=== PATIENT | male | born 1970 | race Caucasian/White ===

== ENCOUNTER → 2019-11-06 | Outpatient (CLI) | payer OTHER, SELFPAY ==
[2019-11-06 14:50] VITALS: BMI 40.2
--- NOTE | 2019-11-06 15:00 | ASPS_PTH ---
PATIENT: GRICEL OROZCO II [facility] U#:[id number] AGE/SX: 49/M ROOM: RE11/06/[address]: Dr. Leif Kathleen MD : 1970 BED: DIS: 11/06/2019 SPEC #: [id number] RECD: 11/06/19 16:32 STATUS: CARLY ANNABELLA #: [id number] NAYELI: 11/06/19 15:[address]: Leif Kathleen DEPT: CYTOLOGY RECD BY: Huang Borjas ENTERED: 11/07/19 11:52 SP TYPE: ASPIRATION OTHR DR: SLADE Bermudez Tissues: Thyroid gland, NOS Procedures: Special Stain Group II Cytology Other HEADER OPERATION: Ultrasound-guided fine needle aspiration right thyroid PRE-OP DIAGNOSIS: Uninodular goiter E04.1 TISSUE SUBMITTED: Fine needle aspiration right thyroid (12 slides) DIAGNOSIS CYTOLOGY Fine needle aspiration, right thyroid nodule (smears): Adequate for evaluation. 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 Chronic lymphocytic thyroiditis. AM:madison 11/10/19 CYTOLOGY STUDY Slides are reviewed. CYTOLOGY GROSS Received are 12 smears labeled with the patient's name and designated per the requisition as right thyroid. Submitted for staining. / madison 11/07/19 TC:? CPT: 12303
== END | disposition home or self-care (01) ==
LOC: LABSPEC 16:34
PROVIDERS: PCP Physician Assistant; Referring Provider Surgery; Visit Provider Surgery
DX: E04.1 Nontoxic single thyroid nodule (principal)
CPT/HCPCS: 88161; 88313

== ENCOUNTER 2019-11-28 07:31 | Day surgery (SDC) | payer OTHER, SELFPAY ==
--- NOTE | 2019-11-13 03:08 | HP_ITS ---
Intake Vital Signs 11/13/19 Height 6 ft 3 in 11/13/19 Weight: 314 lb 11/13/19 BMI 39.2 11/13/19 BP 135/78 H 11/13/19 Blood Pressure Location Rt brachial 11/13/19 Position Sitting 11/13/19 Respiration 20 H 11/13/19 Pulse 81 11/13/19 Pulse Oximetry (%) 96 11/13/19 BMI 40.2 Intake Visit Reasons: F/U ONE WEEK THYROID NODULE Chief Complaint: Thyroid biopsy results Dialysis Equipment Technician Required: No Is patient in pain?: No Allergies latex Allergy (Verified 11/13/19 14:34) Hives Medications Omeprazole [Prilosec] 20 mg PO DAILY 10/26/15 [History Confirmed 11/13/19] glipizide 10 mg tablet 10 mg PO BID 10/07/19 [History Confirmed 11/13/19] lisinopril 2.5 mg tablet 2.5 mg PO DAILY 10/07/19 [History Confirmed 11/13/19] pioglitazone 30 mg tablet 30 mg PO DAILY 10/07/19 [History Confirmed 11/13/19] aspirin 81 mg tablet,delayed release 81 mg PO DAILY 10/31/19 [History Confirmed 11/13/19] metformin 500 mg tablet 1,000 mg PO BID tab 10/31/19 [History Confirmed 11/13/19] [facility] Medical History Thyroid nodule (Acute) Anemia (Acute) Asthma (Acute) BLOOD TRANSFUSION (Acute) Back problem (Acute) Bone fracture (Acute) Carpal tunnel syndrome (Acute) Diabetes (Acute) GERD (gastroesophageal reflux disease) (Acute) Gastrointestinal problem (Acute) Gout (Acute) High cholesterol (Acute) Hives (Acute) IBS (irritable bowel syndrome) (Acute) Liver disease (Acute) Obesity (Acute) Seizure (Acute) ULCERS (Acute) Surgical History History of bilateral carpal tunnel release (Acute) history left bicep repair (Acute) history right elbow surgery (Acute) Family History Grandmother Asthma Father Diabetes Myocardial infarction Heart disease Hypertension High cholesterol Sister High cholesterol Arthritis Uncle Asthma Mother Arthritis Diabetes Thyroid disorder Social History (Updated 11/13/19 @ 15:[address] Leif Kathleen MD) Smoking Status: Never smoker alcohol intake: never substance use type: does not use HPI HPI HPI: GRICEL OORZCO, is a 49 M who presents to the office today for HPI HPI Surgical H&P: Yes HPI: GRICEL OROZCO, is a 49 M who presents to the office today for Follow-up from an ultrasound-guided fine-needle aspiration of a dominant right thyroid nodule which was completed on 11/06/2019. This came back as adequate for evaluation. 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 And there was chronic lymphocytic thyroiditis identified. Patient had a thyroid ultrasound in [place] in July 2019. He was found to have a 1.6 cm nodule on the right thyroid lobe. The left thyroid lobe had no masses and there was no surrounding lymphadenopathy. Patient is not complaining of any neck pain he has no history of thyroid cancer in the family. ROS General General: Yes weight change; no appetite, fatigue, colon cancer, breast cancer or weakness HEENT HEENT: Yes eye surgery and swollen glands; no difficulty swallowing, eye injury or hoarseness Endo Endocrine: Yes diabetes mellitus; no thyroid disease, thyroid cancer, Hair loss, heat intolerance or cold intolerance Skin Skin: No rash or changing moles Breast Breast: No left breast lump, right breast lump, nipple discharge, breast pain, abnormal mammogram, abnormal US or breast enlargement Musc Musculoskeletal: Yes gout; no back problems, arthritis, rheumatoid arthritis or joint pain Cardio Cardiovascular: No murmur, pacemaker, heart disease, atrial fibrillation, high blood pressure, heart attack, heart stent, palpitations, shortness of breat with exertion or chest pain Psych Psychiatric: No depression, anxiety or hearing voices Resp Respiratory: No shortness of breath, No sleep apnea, No cough, No COPD, No asthma, No emphysema, No wheezing Gastro Gastrointestinal: No abdominal pain, No nausea or vomiting, No diarrhea, No constipation, No blood in stool, Yes acid reflux, Yes hemorrhoids, No ulcers, No gallbladder problem, No black,tarry stools Melvin Hematologic: Yes blood thinners, No blood disorders, No bleeding, No anemia, No blood clots Neuro Neurologic: No weakness Exam Const General: no acute distress, well developed, well hydrated Orientation: oriented to person, oriented to place, oriented to time [facility] Head: normocephalic, atraumatic Ears: external ears normal Mouth: moist mucous membranes Eyes Sclera: sclerae normal Pupils: normal by confrontation Neck Neck: no lymphadenopathy noted Neck mass: No Thyroid: thyroid normal, symmetrical Chest Chest palpation & inspection: normal inspection of the chest Breast Palpation: No nipple discharge Resp Effort & Inspection: normal respiratory effort Auscultation: clear to auscultation bilaterally Percussion: percussion normal Cardio Rate: regular rate Rhythm: regular rhythm Heart Sounds: no murmurs GI Palpation: soft, no hepatosplenomegaly, no masses, nontender Rectal Exam: other Other: Rectal exam deferred. Extrem General: normal to inspection, no clubbing, cyanosis or edema Assessment & Plan Problems 1. Uninodular goiter E04.1 Plan My plan is to perform a right-sided thyroid lobectomy. Risk benefits to include bleeding and infection possible injury to parathyroid and recurrent laryngeal nerves have been reviewed with the patient patient also understands that there are general anesthetic risks such as blood clots heart attacks pneumonia strokes which are also a component of the risk factor profile. Coding Level of Care Code Off vis,est,level 3 Diagnoses Uninodular goiter E04.1 11/13/19 1509 <Electronically signed by Leif alexis MD> Date _ Leif Kathleen MD I have re-examined the patient. There are no clinical changes since date of exam.
[2019-11-13 15:04] VITALS: BMI 39.2
[2019-11-28] VITALS (13 sets, daily range): BP systolic 122–155; BP diastolic 75–92; PULSE 68–91; RESP 17–20; TEMP 36.4–36.9; O2SAT 92–97; BMI 39.0
--- NOTE | 2019-11-28 | IMM_PTH ---
PATIENT: GRICEL OROZCO [place] [facility][id number] AGE/SX: 49/M ROOM: RE11/28/[address]: Dr. Leif Kathleen MD : 1970 BED: DIS: 11/29/2019 SPEC #: [id number] RECD: 12/02/19 09:28 STATUS: CARLY REMurray #: [id number] NAYELI: 11/28/19 00:[address]: Leif Kathleen DEPT: IMMUNOHISTOCHEMISTRY RECD BY: Laura Vera ENTERED: 12/02/19 09:30 SP TYPE: IMMUNO OTHR DR: SLADE Bermudez Tissues: A - Thyroid gland, NOS Procedures: CK19 (add) HBME (add) CD56 (initial) PHYSICIAN & INSTITUTION [place] [id number] SPECIMEN INFORMATION: Tissue Source: A - Right thyroid lobe and isthmus Clinical Info: Uninodular goiter Specimen Number: [id number] A8 CPT code: 51719, 08668 x2 METHODOLOGY: Deparaffinized sections of prefer/formalin-fixed tissue or PAP/DQ stained slides are incubated with monoclonal/polyclonal antibodies/oligonucleotide probes. Localization is made via biotin free immunoperoxidase method. Appropriate controls are performed and reacted as expected. Results on target cell population are indicated in the following table: RESULTS: ANTIBODY / CLONE RESULT Block A8 CD56 (123C3.D5) positive CK19 (A53-B/A2.26) negative HBME1 (HBME-1) negative These tests were developed and their performance characteristics determined by [facility]. They may not have been cleared or approved by the U.S. Food and Drug Administration. The FDA has determined that such clearance or approval is not necessary. The above immunohistochemical/dualISH markers are ordered and reviewed by the Pathologist. INTERPRETATION: A. Right thyroid lobe and isthmus: Consistent with Baylee's thyroiditis. AM:madison 12/02/19
--- NOTE | 2019-11-28 | THYROID_PTH ---
PATIENT: GRICEL OROZCO [place] [facility] [place][id number] AGE/SX: 49/M ROOM: RE11/28/[address]: Dr. Leif Kathleen MD : 1970 BED: DIS: 11/29/2019 SPEC #: [id number] RECD: 11/28/19 10:35 STATUS: CARLY REMurray #: [id number] NAYELI: 11/28/19 00:[address]: Leif Kathleen DEPT: SURGICAL PATHOLOGY RECD BY: Laura Vera ENTERED: 11/28/19 11:00 SP TYPE: THYROID OTHR DR: SLADE Bermudez Tissues: A - Thyroid gland, NOS B - Lymph node of neck, NOS Procedures: Frozen Section (charge) Frozen Section Add'kelvin ([facility]) Surgery Specimen Level IV Surgery Specimen Level V HEADER OPERATION: Thyroid lobectomy PRE-OP DIAGNOSIS: Uninodular goiter E04.1 TISSUE SUBMITTED: A - Right thyroid lobe and isthmus sent for frozen at 1027, B - Lymph node FROZEN SECTION DIAGNOSIS A. Right thyroid lobe and isthmus: Chronic lymphocytic thyroiditis (Baylee's thyroiditis), multinodular goiter. SJ:madison 11/28/19 MICROSCOPIC DIAGNOSIS A. 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 One out of one lymph node with no pathologic change. See comment. B. Lymph node, biopsy: Two out of two lymph nodes with no pathologic change. AM:madison 12/02/19 COMMENT A. Immunohistochemistry ([id number]) supports the above diagnosis. MICROSCOPIC DESCRIPTION Slides are reviewed. GROSS DESCRIPTION A - Received fresh for frozen section diagnosis labeled with the patient's name is a specimen designated right thyroid lobe and isthmus. The specimen consists of a thyroid lobectomy and isthmectomy specimen weighing 25.9 gm. The right thyroid lobe measures 7 x 4 x 2.5 cm and isthmus measures 2.5 x 2 x 0.9 cm. No external parathyroid tissue is identified. The specimen is inked as follows: anterior - blue, posterior - black and isthmic margin -yellow. Serial sections reveal multiple multinodular cut surfaces with the largest nodule measuring 2 cm in greatest dimension. Three frozen section are done, one from isthmus and two from right thyroid lobe. Dehydrating Press Operator sections are submitted in 12 cassettes as follows: 1 - frozen section, isthmus, 2 & 3 - frozen section, right thyroid lobe, 4 & 5 - rest of the isthmus, 6-12 - right lobe (6 containing most superior portion and 12 containing most inferior portion of the thyroid lobe). / SJ:madison 11/28/19 B - Received in fixative is one container labeled with the patient's name and designated lymph node. The specimen consists of a shah-pink nodule, a possible lymph node, measuring 0.5 x 0.5 x 0.3 cm. Also present in the container is a piece of adipose tissue measuring 0.5 x 0.3 x 0.1 cm. The entire specimen is submitted in one cassette. / SJ:madison 11/28/19 TC:3 CPT: 43366, 46997 x2, 20838, 76881
--- NOTE | 2019-11-28 08:11 | EKG12_ITS ---
Test Reason : PRE-OP Blood Pressure : / mmHG Vent. Rate : 070 BPM Atrial Rate : 070 BPM P-R Int : 118 ms QRS Dur : 098 ms QT Int : 392 ms P-R-T Axes : 037 026 029 degrees QTc Int : 423 ms Normal sinus rhythm Normal ECG Confirmed by ALICIA FLOREZ, JUSTEN ([id number]), story editor CAL VELAZQUEZ ([id number]) on 12/03/2019 10:09:18 AM Referred By: Leif Kathleen Confirmed By:JUSTEN VARGAS MD
[2019-11-28 08:22] LABS: Anion Gap 5 (5-15); BUN 21 mg/dL (7-18); Calcium,Total 8.7 mg/dL (8.5-10.1); Chloride 105 mmol/L (98-107); Creatinine, Serum 0.81 mg/dL (0.70-1.30); EST Glomerular Filtration Rate 107 mL/min (>60); Est Glom Filt Rate - Afr Amer 130 mL/min (>60); Glucose 171 mg/dL (74-106); Sodium Level 139 mmol/L (136-145)
[2019-11-28] MEDS: Lactated Ringers 1,000 ML 100 ML IV ×2 (08:22→13:14)
[2019-11-28 08:31] LABS: Hemoglobin A1c 8.7 % (4.2-6.3)
[2019-11-28 08:35] LABS: Bedside Glucose 170 mg/dL (70-110)
[2019-11-28] MEDS: BUPIVACAINE LIPOSOME/PF 20 ML VIAL OPERA.SITE (10:30)
--- NOTE | 2019-11-28 10:32 | PCM.OPRPT ---
Problem List (1) Uninodular goiter Status: Acute Report of Operation Date of Procedure: 11/28/19 Pre-Operative Diagnosis: Uninodular goiter Post-Operative Diagnosis: Same Surgery/Procedure Performed:: Right-sided thyroid lobectomy and isthmusectomy Type of Anesthesia:: General Anesthesiologist: Surinder Rich Specimen's removed: Right thyroid and isthmus Drains: None Estimated Blood Loss (mL): < 25 cc Description of Procedure: Patient was brought into the operating room. Placed in the supine position. Under excellent general trach in towel was placed underneath the shoulder blades and neck was extended and sterilely prepped and draped in usual fashion. Local was injected. Cervical incision was made. Subplatysmal flaps were created with use of electrocautery. Gelpi retractor was placed inside the wound. Midline strap muscles were opened. I started on the right side. I took the superior pole vessels down with harmonic dissector the middle thyroidal vein down with harmonic dissector and then the inferior pole vessels down with harmonic dissector. Rotated the gland from a lateral to medial standpoint taking David's ligaments off with harmonic dissector and then took the gland off of the trachea and transected it to the left side of the thyroid gland using the harmonic dissector. Frozen section came back benign. Midline strap muscles were brought together. This was done with a 2-0 Vicryl. Subplatysmal flaps were brought together with a 3-0 Vicryl. And then a running 4-0 Monocryl on the skin. Dermabond was applied sterile dressings were applied and the patient tolerated the procedure well. - Admit VTE Documentation VTE Present on Admission: No VTE Mechan Device Prophylaxis: SCD's VTE Pharm Prophylaxis ordered?: No Reason prophylaxis not ordered:: Treatment Not Indicated
--- NOTE | 2019-11-28 10:44 | DCINST_ITS ---
Discharge Diet: Light diet - advance as tolerated - If you have questions about your diet instructions, please talk to your doctor. Discharge Activity: May Not Drive - for 1 week or while taking narcotic pain medicine. May shower in (days): 1 Lifting Restrictions: 10 pounds Call your doctor if your incision/area has: Continuous Slow Oozing, Sudden Increased Bleeding, Increased Pain/ Swelling, Increased Redness, Foul Smelling Discharge Call your doctor if you observe: Fever of 101 or Higher Suture Line Care: Avoid Pulling/Pushing, Avoid Pinching/Bending Additional Dressing/Incision Instructions:: Change or remove dressing in 4 days. Leave steri-strips in place for 1 week. Allergies/Adverse Reactions: Allergies latex Allergy (Verified 11/28/19 07:51) Hives Medications to take at Discharge Omeprazole [Prilosec] 20 mg PO DAILY 10/26/15 glipizide 10 mg tablet 10 mg PO BID 10/07/19 lisinopril 2.5 mg tablet 2.5 mg PO DAILY 10/07/19 pioglitazone 30 mg tablet 30 mg PO DAILY 10/07/19 aspirin 81 mg tablet,delayed release 81 mg PO DAILY 10/31/19 metformin 500 mg tablet 1,000 mg PO BID tab 10/31/19 Oxycodone HCl/Acetaminophen [Percocet 5/325] 1 - 2 tablet PO Q4H PRN PRN 6 Days #30 tablet 11/28/19 The following prescriptions were given: Oxycodone HCl/Acetaminophen [Percocet 5/325] 1 - 2 tablet PO Q4H PRN PRN 6 Days #30 tablet PRN Reason: Pain Transmission Status: Sent to [id number] Primary Care Physician: Nicky Long PA [Primary Care Provider] - Test Results: Test results from this visit will be discussed in further detail at your follow- up appointment, if applicable. Please Follow Up With: Leif Kathleen MD - [phone] When: Call to make an appointment to be seen in about 10 days.
[2019-11-28 12:01] LABS: Bedside Glucose 153 mg/dL (70-110)
[2019-11-28] MEDS: Cefazolin 1 GM/50 ML BAG IV ×2 (14:53→21:11)
[2019-11-28] MEDS: oxyCODONE 5 MG Tablet PO ×2 (15:48→16:32)
[2019-11-28] MEDS: glipiZIDE 10 MG Tablet PO (16:34)
[2019-11-28] MEDS: metFORMIN HCl 1,000 MG Tablet 1000 MG PO (16:38)
[2019-11-28] MEDS: HYDROmorphone 0.5 MG/0.5 ML SYRINGE IV ×2 (17:36→20:44)
[2019-11-29] MEDS: Lactated Ringers 1,000 ML 100 ML IV (00:50)
[2019-11-29] MEDS: HYDROmorphone 1 MG/ML Syringe IV (00:54)
[2019-11-29 02:40] VITALS: BP 115/65; PULSE 91; RESP 18; TEMP 37.2; O2SAT 93
[2019-11-29] MEDS: Cefazolin 1 GM/50 ML BAG IV (05:26)
[2019-11-29] MEDS: oxyCODONE 5 MG Tablet PO (05:26)
--- NOTE | 2019-11-29 07:48 | PN.SURG_ITS ---
Patient Problems: Active and Suspected Problems (Last Reviewed 11/13/19 @ 15:[address] Leif Kathleen MD) Uninodular goiter (Acute) Subjective: Patient doing well with no issues - Physical Exam Vitals/I&O's: Vital Signs Temp Pulse Resp BP Pulse Ox 99 F 91 18 115/65 93 11/29/19 02:40 11/29/19 02:40 11/29/19 02:40 11/29/19 02:40 11/29/19 02:40 Oxygen Flow Rate (L/min) 2 Oxygen Delivery Method Room Air Weight: 312 lb 9.848 oz Body Mass Index (BMI) 39.0 Intake and Output for Last 24 Hours 11/27/19 11/28/19 11/29/19 23:59 23:59 23:59 Intake Total 1688.33 / 1688.33 761.67 / 761.67 Balance 1688.33 / 1688.33 761.67 / 761.67 General: Alert, Oriented x3 Lungs: Normal air movement Cardiovascular: Regular rate, Regular Rhythm Laboratory Results 11/28/19 08:00: Sodium 139, Potassium 4.0, Chloride 105, Carbon Dioxide 29.0, Anion Gap 5, BUN 21 H, Creatinine 0.81, Estim Creat Clear Calc 130.40, Est GFR (MDRD) Af Amer 130, Est GFR (MDRD) Non-Af 107, BUN/Creatinine Ratio 26.0 H, Glucose 171 H, Calcium 8.7 11/28/19 08:00: Hemoglobin A1c 8.7 H 11/28/19 08:07: POC Glucose 170 H 11/28/19 11:54: POC Glucose 153 H Current Medications Glipizide (Glucotrol) 10 mg PO BIDAC [facility] Last Admin: 11/28/19 16:34 Dose: 10 mg Documented by: Hydromorphone HCl (Dilaudid Inj) 0.5 - 1 mg IV Q2H PRN PRN PRN Reason: Pain Score 1-1010 Last Admin: 11/28/19 20:44 Dose: 0.5 mg Documented by: Hydromorphone HCl (Dilaudid Inj) 0.5 - 1 mg IV Q2H PRN PRN PRN Reason: Pain Score 1-1010 Last Admin: 11/29/19 00:54 Dose: 1 mg Documented by: Lactated Ringer's () 1,000 mls @ 100 mls/hr IV .Q10H ADELA Last Infusion: 11/29/19 05:56 Dose: 100 mls/hr Documented by: Cefazolin Sodium () 1 gm in 50 mls @ 100 mls/hr IV Q8 ADELA Last Infusion: 11/29/19 05:56 Dose: Infused Documented by: Sodium Chloride () 250 mls @ 15 mls/hr IV .[id number] PRN PRN Reason: Saline Flush Lisinopril (Zestril) 2.5 mg PO DAILY ADELA Metformin HCl (Glucophage) 1,000 mg PO BIDCM [facility] Last Admin: 11/28/19 16:38 Dose: 1,000 mg Documented by: Ondansetron HCl (Zofran) 4 mg IV Q8H PRN PRN PRN Reason: NAUSEA Oxycodone HCl (Oxyir) 5 - 10 mg PO Q4H PRN PRN PRN Reason: Pain Score 1-10/10 Last Admin: 11/29/19 05:26 Dose: 10 mg Documented by: Pantoprazole Sodium (Protonix) 20 mg PO DAILY ADELA Pioglitazone HCl (Actos) 30 mg PO DAILY ADELA Sodium Chloride () 10 - 40 ml IV UD PRN PRN Reason: SALINE FLUSH Medical Necessity - Tobacco Use Smoking Status: Never smoker Tobacco Use: Non-smoker Assessment/Plan All Active Problems (Last Reviewed 11/13/19 @ 15:[address] Leif Kathleen MD) Uninodular goiter (Acute) Thyroid nodule (Acute) 49-year-old male status post right thyroidectomy 1. Patient is doing well besides a sore throat. His neck is soft and no signs of hematoma. Will DC patient home. Dipak Vargas MD Pager: [facility] [address] [place] [address], [address] [place] [address] Office:
[2019-11-29 08:40] VITALS: BP 128/84; PULSE 95; RESP 18; TEMP 36.4; O2SAT 92
[2019-11-29] MEDS: Pantoprazole Sodium 20 MG Tablet PO (09:04)
[2019-11-29] MEDS: Lisinopril 2.5 MG Tablet PO (09:04)
[2019-11-29 09:10] LABS: Bedside Glucose 172 mg/dL (70-110)
== END 2019-11-29 11:16 | disposition home or self-care (01) ==
LOC: SDC 07:31 → AC 07:33 → MS3 10:47
PROVIDERS: Anesthesiology; PCP Physician Assistant; Referring Provider Surgery; Visit Provider Surgery
PROC: (CPT 60220; principal; 2019-11-28 09:15)
DX: E06.3 Autoimmune thyroiditis (principal); E04.2 Nontoxic multinodular goiter; J45.909 Unspecified asthma, uncomplicated; E11.9 Type 2 diabetes mellitus without complications; K21.9 Gastro-esophageal reflux disease without esophagitis; E78.00 Pure hypercholesterolemia, unspecified; E66.9 Obesity, unspecified; Z68.39 Body mass index [BMI] 39.0-39.9, adult; Z79.82 Long term (current) use of aspirin; Z79.84 Long term (current) use of oral hypoglycemic drugs; Z79.899 Other long term (current) drug therapy
CPT/HCPCS: 60220; 80048; 82962; 83036; 88305; 88307; 88331; 88332; 88341; 88342; 93005; 99251; J7120; G0463; J2405

== ENCOUNTER → 2020-01-23 | Outpatient (CLI) | payer OTHER, SELFPAY ==
[2019-11-28 12:53] VITALS: BMI 39.0
[2020-01-23 18:08] LABS: T4 Free Direct 0.85 ng/dL (0.76-1.46)
[2020-01-25 13:56] LABS: Thyroid Peroxidase AB 120 IU/mL (0-34)
== END | disposition home or self-care (01) ==
LOC: MTLAB 14:56
PROVIDERS: PCP Physician Assistant; Referring Provider Internal Medicine Endocrinology, Diabetes & Metabolism; Visit Provider Internal Medicine Endocrinology, Diabetes & Metabolism
DX: E06.3 Autoimmune thyroiditis (principal); E04.1 Nontoxic single thyroid nodule; R94.6 Abnormal results of thyroid function studies
CPT/HCPCS: 84439; 84443; 86376

== ENCOUNTER → 2020-11-24 16:28 | Outpatient (CLI) | payer OTHER, SELFPAY ==
[2020-08-16 10:31] VITALS: BMI 39.0
[2020-11-24 18:26] LABS: AST(SGOT) 68 U/L (15-37); Alanine Aminotransfer ALT/SGPT 98 U/L (16-61); Albumin, Serum 3.9 g/dL (3.2-5.0); Alkaline Phosphatase 92 U/L (45-117); Bilirubin, Direct 0.16 mg/dL (0.00-0.30); GGTP 153 U/L (15-85); Globulin 3.7 g/dL (2.2-4.2); Protein, Total 7.6 g/dL (6.4-8.2)
[2020-11-26 16:36] LABS: AFP, Tumor Marker 1.6 ng/mL (0.0-8.3)
== END ==
PROVIDERS: PCP Physician Assistant; Referring Provider Internal Medicine Gastroenterology; Visit Provider Internal Medicine Gastroenterology
DX: K76.0 Fatty (change of) liver, not elsewhere classified (principal); K74.60 Unspecified cirrhosis of liver
CPT/HCPCS: 36415; 80076; 82105; 82977

== ENCOUNTER → 2021-07-19 12:18 | Outpatient (CLI) | payer OTHER, SELFPAY ==
[2021-07-19 15:47] LABS: T4 Free Direct 1.19 ng/dL (0.76-1.46); Thyroid Stim Hormone (TSH) 3.22 uIU/mL (0.358-3.74)
== END ==
PROVIDERS: PCP Physician Assistant; Referring Provider Internal Medicine Endocrinology, Diabetes & Metabolism; Visit Provider Internal Medicine Endocrinology, Diabetes & Metabolism
DX: E89.0 Postprocedural hypothyroidism (principal); E06.3 Autoimmune thyroiditis
CPT/HCPCS: 36415; 84439; 84443

== ENCOUNTER 2022-07-21 11:25 | Inpatient (IN) | payer OTHER, SELFPAY ==
--- NOTE | 2022-07-11 15:59 | EKG12_ITS ---
Test Reason : PRE-OP Blood Pressure : / mmHG Vent. Rate : 076 BPM Atrial Rate : 076 BPM P-R Int : 104 ms QRS Dur : 098 ms QT Int : 384 ms P-R-T Axes : 030 028 022 degrees QTc Int : 432 ms Sinus rhythm with short OH Otherwise normal ECG Confirmed by ALICIA FLOREZ, JUSTEN ([id number]), supervising editor trailer CAL VELAZQUEZ ([id number]) on 07/12/2022 6:47:44 AM Referred By: Khoa Parmar Confirmed By:JUSTEN VARGAS MD
[2022-07-11 16:46] LABS: Hematocrit 38.9 % (40-54); Hemoglobin 12.8 g/dL (13.0-16.5); Mean Corp Hgb Conc 32.9 g/dL (32-36); Mean Corpuscular Hgb 27.8 pg (27.0-32.0); Mean Corpuscular Volume 84.4 fL (80-94); Mean Platelet Vol. 10.3 fl (6.2-12.0); Platelet Count 221 K/mm3 (150-450); RBC Distribution Width CV 13.4 % (11.6-14.6); RBC Distribution Width SD 40.7 fl (35.1-43.9); Red Blood Count 4.61 M/mm3 (4.6-6.2); White Blood Count 6.6 K/mm3 (4.4-11.0)
[2022-07-11 17:10] LABS: Anion Gap 5 (5-15); BUN 18 mg/dL (7-18); Calcium,Total 9.2 mg/dL (8.5-10.1); Chloride 103 mmol/L (98-107); EST Glomerular Filtration Rate 94 mL/min (>60); Est Glom Filt Rate - Afr Amer 114 mL/min (>60); Glucose 118 mg/dL (74-106); Potassium 3.8 mmol/L (3.5-5.1); Sodium Level 138 mmol/L (136-145); Thyroid Stim Hormone (TSH) 6.09 uIU/mL (0.358-3.74)
[2022-07-11 17:53] LABS: Hemoglobin A1c 6.5 % (3.8-5.6)
[2022-07-21] VITALS (21 sets, daily range): BP systolic 135–161; BP diastolic 71–90; PULSE 78–98; RESP 15–24; TEMP 36.2–36.8; O2SAT 89–97; BMI 38.4
--- NOTE | 2022-07-21 | KID_PTH ---
PATIENT: GRICEL OROZCO II LOC: [facility] U#:[id number] AGE/SX: 51/M ROOM: CT314 RE07/21/[address]: Dr. Khoa Parmar MD : 1970 BED: 1 DIS: 07/23/2022 SPEC #: [id number] RECD: 07/21/22 14:39 STATUS: CARLY [place] #: [id number] NAYELI: 07/21/22 00:[address]: Khoa Parmar DEPT: SURGICAL PATHOLOGY RECD BY: Tu Moctezuma ENTERED: 07/21/22 14:39 SP TYPE: KIDNEY OTHR DR: SLADE Bermudez Tissues: Kidney, NOS Procedures: Surgery Specimen Level V HEADER OPERATION: Laparoscopic robotic left partial nephrectomy PRE-OP DIAGNOSIS: Neoplasm of left kidney TISSUE SUBMITTED: Left renal mass MICROSCOPIC DIAGNOSIS Left kidney mass, partial nephrectomy: Clear cell renal cell carcinoma. See cancer synoptic report below. AM:madison 07/25/2022 COMMENT KIDNEY CANCER SUMMARY Procedure ? partial nephrectomy Specimen laterality ? left kidney Tumor size ? 3 x 2.5 x 2 cm Tumor focality ? single focus of carcinoma Histologic type ? clear cell renal cell carcinoma Sarcomatoid features ? not identified Rhabadoid features - not identified Histologic grade ? Christiano grade 2/4 Tumor necrosis ? not present Tumor extension ? tumor confined to kidney. Margins ? uninvolved by invasive carcinoma Lymphvascular invasion - not identified Regional lymph nodes ? no lymph nodes found Non-neoplastic kidney ? mild arterionephrosclerosis and focal chronic inflammation. PATHOLOGIC STAGE: T1a Nx Mx The above summary is in compliance with [employer] (CAP) Cancer Protocols Checklist and [place] [employer] Committee on Cancer (AJCC), Staging Manual, 8th Ed. MICROSCOPIC DESCRIPTION Slides are reviewed. GROSS DESCRIPTION Received in fixative is one container labeled with the patient's name and designated left renal mass. The specimen consists of an irregular fragment of shah tissue surrounded by yellow fatty tissue. The specimen measures 4.2 x 3.8 x 3 cm. The presumed parenchymal margin is inked in black ink. The opposite surface is inked in blue ink. Serial sections reveal a yellow-pink hemorrhagic mass measuring 3 x 2.5 x 2 cm. Community Development Director sections are submitted in ten cassettes. / AM:madison 07/24/2022 TC:0 CPT: 40916
[2022-07-21] MEDS: Lactated Ringers 1,000 ML 15 ML IV (06:55)
[2022-07-21 07:01] LABS: Bedside Glucose 135 mg/dL (74-106)
--- NOTE | 2022-07-21 11:29 | PCM.HP.STD ---
HPI - General General Date of Service: 07/21/22 Chief Complaint: Left renal mass HPI Narrative GRICEL OROZCO, is a 51 M who presents for a left laparoscopic robotic assisted partial nephrectomy. [facility] Medical History (Updated 07/21/22 @ 11:[address] Khoa Parmar MD) Anemia Asthma Back problem BLOOD TRANSFUSION Bone fracture Cancer Cirrhosis Cirrhosis of liver Diabetes Diabetes Dietary restriction Gastric reflux GERD (gastroesophageal reflux disease) Gout Gout Baylee's thyroiditis High cholesterol History of echocardiogram History of IBS History of renal disease History of stress test IBS (irritable bowel syndrome) Leg cramps Liver disease Non-smoker Obesity Postoperative hypothyroidism Seizure Thyroid disease Thyroid nodule ULCERS Wears glasses Home Medications omeprazole 20 mg capsule,delayed release 40 mg PO DAILY 10/26/15 [History Last Taken 07/21/22] glipizide 10 mg tablet (Glucotrol) 10 mg PO DAILY 10/07/19 [History Last Taken 07/20/22] lisinopril 2.5 mg tablet 2.5 mg PO DAILY 10/07/19 [History Last Taken 07/20/22] pioglitazone 30 mg tablet 30 mg PO DAILY #30 tabs 01/03/22 [Rx Last Taken 07/20/22] milk thistle 150 mg capsule 150 mg PO DAILY 03/10/22 [History Last Taken 07/20/22] multivitamin (Daily Multi-Vitamin tablet) 1 tab PO DAILY 03/10/22 [History Last Taken 07/20/22] turmeric 500 mg PO DAILY 03/10/22 [History Last Taken Unknown] metformin 500 mg tablet 1,000 mg PO BID #180 tabs 06/30/22 [Rx Last Taken 07/20/22] dulaglutide 3 mg/0.5 mL subcutaneous pen injector (Trulicity) 3 mg subcut MO 07/07/22 [History Last Taken 07/17/22] levothyroxine 200 mcg tablet 200 mcg PO QHS 07/07/22 [History Last Taken 07/20/22] docusate sodium 100 mg capsule (Colace) 100 mg PO BID #20 caps 07/21/22 [Rx Last Taken Unknown] oxycodone-acetaminophen 5 mg-325 mg tablet 1 tab PO Q6H PRN pain 7 days #14 tabs 07/21/22 [Rx Last Taken Unknown] Allergy/AdvReac Type Severity Reaction Status Date / Time latex Allergy Hives Verified 07/21/22 06:32 Family History Grandmother Asthma Father Diabetes Myocardial infarction Heart disease Hypertension High cholesterol Sister High cholesterol Arthritis Uncle Asthma Mother Arthritis Diabetes Thyroid disorder Surgical History (Updated 07/07/22 @ 10:23 by Margarette Lopez) history left bicep repair History of bilateral carpal tunnel release History of incision and drainage History of partial thyroidectomy (~11/2019) history right elbow surgery Hx laparoscopic cholecystectomy Social History Smoking Status: Never smoker alcohol intake: never substance use type: does not use Vital Signs Vital Signs Vital Signs: 07/21/22 06:35 07/21/22 06:35 Temperature 97.8 F Temperature Source Temporal Pulse Rate 78 Respiratory Rate 20 H Respiratory Pattern Normal Blood Pressure 136/81 H Blood Pressure Mean 99 Blood Pressure Source Monitor Blood Pressure Position Semi-Fowlers Blood Pressure Location Left Arm Pulse Ox 94 Oxygen Delivery Method Room Air Weight Weight: 139.5 kg Body Mass Index (BMI) 38.4 Results Lab / Micro Data Result Diagrams: 07/11/22 16:14 07/11/22 16:14 Labs: Laboratory Results - last 24 hr 07/21/22 06:26: POC Glucose 135 H
--- NOTE | 2022-07-21 11:29 | PCM.DC ---
Discharge Instructions Diet Discharge Diet: No restrictions, Light diet - advance as tolerated and Soft diet Activity Discharge Activity: May Not Drive and May Shower Return to work on:: 09/01/22 May shower in (days): 1 Lifting Restrictions: No lifting over 10 pounds for 6 weeks Dressing / Incision Call your doctor if your incision/area has: Continuous Slow Oozing and Sudden Increased Bleeding Cleanse incision/area with: Soap & Water Follow Up Care Please Follow Up With: Khoa Parmar MD When: Follow-up in 2 weeks Test Results: Test results from this visit will be discussed in further detail at your follow-up appointment, if applicable. Discharge Plan Admission Primary Reason for Your Visit: left partial nephrectomy Attending Provider: Khoa Parmar Primary Care Provider: Nicky Long Instructions Patient Instructions: Nephrectomy Dc Discharge Orders/Prescriptions Prescriptions: New oxycodone-acetaminophen 5-325 mg tablet 1 tab PO Q6H PRN (Reason: pain) 7 Days Qty: 14 0RF docusate sodium [Colace] 100 mg capsule 100 mg PO BID Qty: 20 0RF Continued lisinopril 2.5 mg tablet 2.5 mg PO DAILY glipizide [Glucotrol] 10 mg tablet 10 mg PO DAILY pioglitazone 30 mg tablet 30 mg PO DAILY Qty: 30 6RF multivitamin [Daily Multi-Vitamin] Tablet 1 tab PO DAILY milk thistle 150 mg capsule 150 mg PO DAILY Rx Instructions: give with meal/snack turmeric 500 mg PO DAILY omeprazole 20 MG capsule 40 mg PO DAILY levothyroxine 200 mcg tablet 200 mcg PO QHS Trulicity 3 mg/0.5 mL pen injector 3 mg subcut MO metformin 500 mg tablet 1,000 mg PO BID Qty: 180 1RF Referrals / Follow Up: Khoa Parmar MD [Med Staff - Active Staff] - Nicky Long PA [Primary Care Provider] - Disposition Disposition (needs filled in before D/C Order can be placed): Home, Self Care
[2022-07-21] MEDS: Bupivacaine 0.25% 30 ML Vial (11:30)
[2022-07-21] MEDS: Lactated Ringers 1,000 ML 125 ML IV ×2 (11:30→17:17)
--- NOTE | 2022-07-21 11:30 | OP.PCM_ITS ---
Report of Operation Date of Procedure: 07/21/22 Pre-Operative Diagnosis: Left renal mass Post-Operative Diagnosis: The same Surgery/Procedure Performed:: Laparoscopic robotic assisted partial nephrectomy left side Description of Surgical Findings:: 51-year-old male was found to have a mass in his left kidney about 3 cm in size recommended that we proceed with a laparoscopic robotic assisted partial nephrectomy we talked about the risk of surgery risk of bleeding infection injury to critical structures such as bowel and colon, risk of a transfusion. And also the goal is to remove the entire tumor but hopefully save his left kidney and perform a partial nephrectomy. Patient was taken back to the operating room at his induction of anesthesia he was placed supine first and then we placed in full flank position with an axillary roll in place we secured them to the table with tape's and padding to make sure that all the pressure points were padded the legs and ankles and joints were padded and the table was flexed. Fairly large obese gentleman his BMI was 38 he was 6 foot 139 kg which made the surgery fairly challenging. The abdomen was shaved prepped and draped in usual sterile fashion then I made a small incision in the mid abdomen introduced a Veress needle into the peritoneal cavity insufflated the peritoneal cavity with CO2 gas I then placed the camera trocar left arm trocar into right arm trochars for the robot and an air seal port for the agency sales management assistant. We then docked the robot and the first part we did is we incised and reflected the colon off the kidney very difficult the dissection again given the patient's size. But we able to reflect the colon off the kidney and then using the fourth arm elevated the kidney up and then dissecting underneath the kidney I first identified the gonadal vein and traced the gonadal vein underneath the kidney all the way to the renal vein. I dissected superior to the renal vein but did not find the artery I then came back inferior to renal vein and was able to clip the gonadal vein I then clipped clipped the lumbar vein coming off the gonadal vein and off the renal vein after clipping these veins and I had better visualization behind the renal vein and then deep behind the renal vein was a renal artery coming off the aorta this was identified and and cleared took a long time to dissect the renal artery and finally get it cleared up to place a bulldog on it. I then flipped the kidney down we opened up the kidney Gerota's fascia defatted the kidney identify the tumor it was in the mid upper pole circumferentially dissected all the way around the tumor used the ultrasound to delineate the edges of the tumor so that the approach was then marked on the renal parenchyma to identify the safe areas that approach the tumor. Once the tumor was identified then a bulldog was placed on the artery initially was planning for 2 to bulldogs but there was only room for one of the 1 bulldog provided enough compression and there was good control of the vascular supply to the kidney once we started dissecting on the tumor there was really no heavy bleeding I then dissected circumferentially around the tumor then got underneath the tumor elevated the tumor off the hilum and then we dissected deep underneath the tumor until we were able to elevate this tumor off the renal renal parenchyma there was no violations of the capsule of the tumor he saw the tumor was visible on resection but it was a clean resection and entirely resected. Once the tumor was resected off the kidney this was put in Endo Catch bag I then ran a stitch along the base of the resection site with a 3 oh V-Loc stitch I then reapproximated the edge of the kidney using interrupted technique using large clips clips to perform reknot free to reapproximate the edges of the kidney edges with the resection was done after this was completed then we then clamped the artery clamp time was less than 30 minutes there was good blood flow to the kidney there was some minor oozing from the resection site and the suture line Floseal was placed on this and the Surgicel was placed on this and we continue with observation and there was no more bleeding. The robot was then undocked we extracted the tumor through the air seal port and then we at the closed the aerocele port is quite difficult but is able to put 2 Almira's on the fascia but nice interrupted stitches and brought the fascia together I probed the wound with my finger then the fascia was closed. We then looked back and there was no signs of bleeding from the kidney kidney was tacked up against the sidewall again and then all the ports were removed under visualization there was minimal blood loss in the case tumor was resected completely negative margins were obtained grossly and all the instruments were removed and everything was accounted for needles and sponges were accounted for patient's anesthetic was reversed and is being taken to the PACU in good condition. Surgeon: Khoa Parmar Type of Anesthesia: General Drains: rodríguez Admit VTE Documentation VTE Present on Admission: No VTE Mechan Device Prophylaxis: SCD's VTE Pharm Prophylaxis ordered?: No
--- NOTE | 2022-07-21 12:10 | SUR.PHASEI ---
NASAL TRUMPET INSERTED VIA [employer]JELIO IT SECURITY ENGINEER FOR [employer]. HE ALSO GOT AN ORDER FOR A DUONEB FROM DR. MCDANIEL. RESPIRATORY CALLED TO HAVE THEM COME FOR THE TREATMENT.
[2022-07-21] MEDS: Ipratropium/Albuterol Sulfate 3 ML AMPUL.NEB INHALATION (12:16)
[2022-07-21 12:45] LABS: Bedside Glucose 191 mg/dL (74-106)
[2022-07-21 14:40] LABS: Bedside Glucose 191 mg/dL (74-106)
[2022-07-21] MEDS: Ketorolac 15 MG/ML Vial IV (17:15)
[2022-07-21] MEDS: metFORMIN HCl 500 MG Tablet 1000 MG PO (17:16)
[2022-07-21] MEDS: Acetaminophen 325 MG Tablet PO (18:26)
[2022-07-21] MEDS: Levothyroxine 100 MCG Tablet 200 MCG PO (20:39)
[2022-07-21] MEDS: Docusate Sodium 100 MG Capsule 200 MG PO (20:41)
[2022-07-22] MEDS: Lactated Ringers 1,000 ML 125 ML IV (01:29)
[2022-07-22 03:57] VITALS: BP 148/82; PULSE 98; RESP 16; TEMP 36.7; O2SAT 98
[2022-07-22 03:59] VITALS: BP 148/82; PULSE 98; RESP 16; TEMP 36.7; O2SAT 98
[2022-07-22 06:08] LABS: Hematocrit 37.3 % (40-54); Hemoglobin 12.5 g/dL (13.0-16.5); Mean Corp Hgb Conc 33.5 g/dL (32-36); Mean Corpuscular Hgb 28.6 pg (27.0-32.0); Mean Corpuscular Volume 85.4 fL (80-94); Platelet Count 185 K/mm3 (150-450); RBC Distribution Width CV 13.5 % (11.6-14.6); RBC Distribution Width SD 42.4 fl (35.1-43.9); Red Blood Count 4.37 M/mm3 (4.6-6.2); White Blood Count 7.6 K/mm3 (4.4-11.0)
[2022-07-22 06:43] LABS: Anion Gap 6 (5-15); BUN 18 mg/dL (7-18); BUN/Creat Ratio 14.9 RATIO (10-20); Calcium,Total 8.6 mg/dL (8.5-10.1); Chloride 104 mmol/L (98-107); Creatinine, Serum 1.21 mg/dL (0.70-1.30); EST Glomerular Filtration Rate 67 mL/min (>60); Est Glom Filt Rate - Afr Amer 81 mL/min (>60); Estimated Creatinine Clearance 85.35 ml/min; Glucose 171 mg/dL (74-106); Sodium Level 137 mmol/L (136-145)
[2022-07-22 08:11] VITALS: BP 133/84; PULSE 91; RESP 18; TEMP 36.7; O2SAT 95
[2022-07-22] MEDS: Pantoprazole Sodium 40 MG Tablet PO (08:31)
[2022-07-22] MEDS: Pioglitazone Hydrochloride 30 MG Tablet PO (08:32)
[2022-07-22] MEDS: Docusate Sodium 100 MG Capsule 200 MG PO ×2 (08:32→21:00)
[2022-07-22] MEDS: glipiZIDE 10 MG Tablet PO (08:32)
--- NOTE | 2022-07-22 08:32 | PCM.PN.GU ---
Subjective Subjective Postoperative day #2 status post a left partial nephrectomy, doing fairly well still requiring a little bit of oxygen but pain is under control had some liquid bowel movement last night, plan today would be to Hep-Lock his IV fluids remove the Putnam catheter encourage ambulation advance to regular diet as tolerated. Objective Data Objective Data Vital Signs: Vital Signs Temp Pulse Resp BP Pulse Ox O2 Del Method O2 Flow Rate 98.1 F 91 18 133/84 H 95 Nasal Cannula 2 07/22/22 08:11 07/22/22 08:11 07/22/22 08:11 07/22/22 08:11 07/22/22 08:11 07/22/22 08:17 07/22/22 08:17 Oxygen Flow Rate (L/min) 2 Oxygen Delivery Method Nasal Cannula Weight: 139.5 kg Body Mass Index (BMI) 38.4 Intake & Output: Intake and Output for Last 24 Hours 07/20/22 07/21/22 07/22/22 23:59 23:59 23:59 Intake Total 4537.92 / 4537.92 1000 / 1000 Output Total 1475 / 1475 1300 / 1300 Balance 3062.92 / 3062.92 -300 / -300 Lab / Micro Data Result Diagrams: 07/22/22 05:24 07/22/22 05:24 Labs: Laboratory Results - last 24 hr 07/21/22 12:25: POC Glucose 191 H 07/21/22 14:21: POC Glucose 191 H 07/22/22 05:24: WBC 7.6, RBC 4.37 L, Hgb 12.5 L, Hct 37.3 L, MCV 85.4, MCH 28.6, MCHC 33.5, RDW Std Deviation 42.4, RDW Coeff of [place]ilah 13.5, Plt Count 185, MPV 10.0 07/22/22 05:24: Sodium 137, Potassium 4.0, Chloride 104, Carbon Dioxide 27.0, Anion Gap 6, BUN 18, Creatinine 1.21, Estim Creat Clear Calc 85.35, Est GFR (MDRD) Af Amer 81, Est GFR (MDRD) Non-Af 67, BUN/Creatinine Ratio 14.9, Glucose 171 H, Calcium 8.6
[2022-07-22] MEDS: metFORMIN HCl 500 MG Tablet 1000 MG PO ×2 (08:33→17:07)
[2022-07-22] MEDS: Lisinopril 2.5 MG Tablet PO (08:33)
[2022-07-22] MEDS: FLU VACC QS2022-23(6MOS UP)/PF 60 MCG/0.5 ML SYRINGE IM (08:33)
[2022-07-22] MEDS: Ketorolac 15 MG/ML Vial IV ×2 (08:33→17:12)
[2022-07-22 11:26] VITALS: O2SAT 93
--- NOTE | 2022-07-22 12:55 | CASEMGMT ---
RN CM Face to Face with patient for initial transition planning/care coordination assessment. RN CM introduced self and role at [facility]. Patient lying in bed, alert and oriented, family at bedside. Patient willing to participate in assessment and is able to answer all questions appropriately. Care providers, pharmacy, and demographics verified. Patient wishes to discharge home, denies need for home health at this time. Patient states he has no further needs or concerns at this time. CM to follow for discharge planning needs that may arise. PCP: ABIMAEL Long Specialists: Agata urologist; [facility] Tables Set Up Attendant; GEOVANNA Amaya Preferred Pharmacy: [facility] Insurance: [employer] Prescription Benefit: yes Living Will/HPOA: none LNOK: Living Arrangements: patient lives with in a single story home with 3 steps and railing to enter. Patient states he is independent at home. Transportation: self, family DME/HHC: Patient denies DME in the home or previous HHC Disposition Plan: Patient to discharge home with family support and follow-up plans in place. Tara SNYDER, RN, CM
[2022-07-22 15:23] VITALS: BP 142/83; PULSE 108; RESP 18; TEMP 36.6; O2SAT 95
[2022-07-22 20:50] VITALS: BP 102/79; PULSE 110; RESP 18; TEMP 36.6; O2SAT 93
[2022-07-22] MEDS: Levothyroxine 100 MCG Tablet 200 MCG PO (21:00)
[2022-07-23 03:00] VITALS: BP 110/72; PULSE 101; RESP 16; TEMP 36.7; O2SAT 96
[2022-07-23] MEDS: Pantoprazole Sodium 40 MG Tablet PO (08:24)
[2022-07-23] MEDS: Docusate Sodium 100 MG Capsule 200 MG PO (08:24)
[2022-07-23 08:25] VITALS: BP 131/79; PULSE 97; RESP 18; TEMP 36.9; O2SAT 94
[2022-07-23] MEDS: metFORMIN HCl 500 MG Tablet 1000 MG PO (08:25)
[2022-07-23] MEDS: Pioglitazone Hydrochloride 30 MG Tablet PO (08:25)
[2022-07-23] MEDS: Lisinopril 2.5 MG Tablet PO (08:25)
[2022-07-23] MEDS: glipiZIDE 10 MG Tablet PO (08:25)
[2022-07-23 09:12] VITALS: BP 131/79; PULSE 97; RESP 18; TEMP 36.9; O2SAT 94
[2022-07-23 11:24] VITALS: O2SAT 92
[2022-07-23 15:25] VITALS: BP 136/66; PULSE 103; RESP 18; TEMP 37.7; O2SAT 94
[2022-07-23 16:00] VITALS: BP 128/80; PULSE 97; RESP 18; TEMP 36.9; O2SAT 95
== END 2022-07-23 16:30 | disposition home or self-care (01) | DRG 658 ==
LOC: SDC 11:49 → MS3 11:49
PROVIDERS: Anesthesiology; Admitting Provider Urology; PCP Physician Assistant; Referring Provider Urology; Visit Provider Urology
PROC: 0TB14ZZ Excision of Left Kidney, Percutaneous Endoscopic Approach (ICD-10-PCS; CPT 50543; principal; 2022-07-21 07:10)
DX: D41.02 Neoplasm of uncertain behavior of left kidney (principal); E07.9 Disorder of thyroid, unspecified; E11.9 Type 2 diabetes mellitus without complications; K58.9 Irritable bowel syndrome, unspecified; E78.00 Pure hypercholesterolemia, unspecified; Z79.84 Long term (current) use of oral hypoglycemic drugs
CPT/HCPCS: 36415; 80048; 82962; 83036; 84443; 85027; 86850; 86900; 86901; 88307; 93005; 94640; 99251; J7120; 90686; G0463; J2405

== ENCOUNTER 2022-10-31 10:53 | Emergency (ER) | payer OTHER, SELFPAY ==
[2022-10-31 10:53] VITALS: BP 151/97; PULSE 96; RESP 18; TEMP 36.4; O2SAT 97; BMI 37.5
[2022-10-31] MEDS: Ketorolac 15 MG/ML Vial IM (15:18)
[2022-10-31] MEDS: Lidocaine 5% Patch 1 PATCH TOPICAL (15:19)
--- NOTE | 2022-10-31 15:27 | EX.ED.GENINJ ---
HPI History of Present Illness Chief Complaint: Chest Other Informant: patient Narrative Narrative: Patient is a 52-year-old male with history of diabetes, liver cirrhosis, Baylee's thyroiditis, IBS, GERD and seizure disorder presenting with continued right-sided chest wall pain. Patient slipped on the bumper of a truck when he was try to get in a week ago and fell onto his right side. He tried to brace himself and ended up with significant right-sided chest pain. He reports he has had 3 ER visits at [facility] and he ultimately was diagnosed with fourth rib fracture. He has been prescribed Percocet, Motrin and Lidoderm patches but continues to have a lot of pain. He says my chest wall is really sore, I think it is more sore than it should be. Patient does have an incentive spirometer. He denies any new injury. He denies any significant progression or change of his symptoms over the past few days. He also voices frustration as he is on light duty and cannot really do anything since he is right-hand dominant and picking things up with his right hand hurts. Denies any new shortness of breath or difficulty breathing. No other complaints at this time. Initially did have some bruising on his right lateral ribs but that has been improving. [facility] Medical History Anemia Asthma Back problem BLOOD TRANSFUSION Bone fracture Cancer Cirrhosis Cirrhosis of liver Diabetes Diabetes Dietary restriction Gastric reflux GERD (gastroesophageal reflux disease) Gout Gout Baylee's thyroiditis High cholesterol History of echocardiogram History of IBS History of renal disease History of stress test IBS (irritable bowel syndrome) Leg cramps Liver disease Non-smoker Obesity Postoperative hypothyroidism Seizure Thyroid disease Thyroid nodule ULCERS Wears glasses Home Medications omeprazole 20 mg capsule,delayed release 40 mg PO DAILY 10/26/15 [History Last Taken 07/21/22] lisinopril 2.5 mg tablet 2.5 mg PO DAILY 10/07/19 [History Last Taken 07/20/22] milk thistle 150 mg capsule 150 mg PO DAILY 03/10/22 [History Last Taken 07/20/22] multivitamin (Daily Multi-Vitamin tablet) 1 tab PO DAILY 03/10/22 [History Last Taken 07/20/22] turmeric 500 mg PO DAILY 03/10/22 [History Last Taken Unknown] levothyroxine 200 mcg tablet 200 mcg PO QHS 07/07/22 [History Last Taken 07/20/22] docusate sodium 100 mg capsule (Colace) 100 mg PO BID #20 caps 07/21/22 [Rx Last Taken Unknown] Trulicity 4.5 mg/0.5 mL subcutaneous pen injector (dulaglutide) 4.5 mg (0.5 mL) subcut QWEEK #2 mL 08/15/22 [Rx Last Taken Unknown] glipizide 10 mg tablet 10 mg PO DAILY #90 tabs 08/15/22 [Rx Last Taken Unknown] pioglitazone 30 mg tablet 30 mg PO DAILY #30 tabs 08/15/22 [Rx Last Taken Unknown] Trulicity 1.5 mg/0.5 mL subcutaneous pen injector (dulaglutide) 1.5 mg (0.5 mL) subcut QWEEK #2 mL 09/22/22 [Rx Last Taken Unknown] metformin 500 mg tablet 1,000 mg PO BID #360 tabs 10/11/22 [Rx Last Taken Unknown] ketorolac 10 mg tablet 10 mg PO Q6H PRN pain #20 tabs 10/31/22 [Rx Last Taken Unknown] Allergy/AdvReac Type Severity Reaction Status Date / Time latex Allergy Hives Verified 10/31/22 10:55 Family History Grandmother Asthma Father Diabetes Myocardial infarction Heart disease Hypertension High cholesterol Sister High cholesterol Arthritis Uncle Asthma Mother Arthritis Diabetes Thyroid disorder Surgical History history left bicep repair History of bilateral carpal tunnel release History of incision and drainage History of partial thyroidectomy (~11/2019) history right elbow surgery Hx laparoscopic cholecystectomy Social History Smoking Status: Never smoker alcohol intake: never substance use type: does not use ROS ROS ED Constitutional Constitutional ED: Denies chills or fever(s) ENT ENT ED: Denies ear pain or sore throat Cardiovascular Cardiovascular: Reports chest pain; Denies palpitations Respiratory/Chest Respiratory/Chest: Denies cough or dyspnea Gastrointestinal Gastrointestinal: Denies nausea or vomiting Musculoskeletal Musculoskeletal: Denies arthralgias or myalgias Integumentary Denies rash Neurologic Neurologic: Denies headache(s) or weakness Psychiatric Psychiatric: Denies anxiety Hematologic/Lymphatic Hematologic/Lymphatic: Denies easy bleeding or easy bruising EXAM Physical Exam Const Vital Signs: 10/31/22 10:53 10/31/22 15:22 Temperature 97.5 F L Temperature Source Temporal Pulse Rate 96 Respiratory Rate 18 Respiratory Pattern Normal Blood Pressure 151/97 H Blood Pressure Mean 115 Pulse Ox 97 Oxygen Delivery Method Room Air Positive well nourished and well developed General Appearance ED: well developed and NAD HEENT atraumatic Eyes PERRL and EOMs intact bilaterally Neck full ROM Chest Wall inspection of chest normal and palpation of chest normal Chest Narrative: Obvious deformity. Tenderness to palpation on the right chest around the level of rib 4. No chest wall crepitus appreciated. Resp normal respiratory effort and clear to auscultation bilaterally Effort and Inspection: pain with movement Cardio regular rhythm and no murmurs Rate: regular rate GI normal to inspection, nondistended, normoactive bowel sounds Back/Spine normal to inspection Back/Spine Narrative: No midline thoracic spinal tenderness Neuro oriented x3, moves all extremities and no focal motor deficits Psych mental status grossly normal Skin no rashes or lesions noted and no wounds MDM MDM MDM Narrative Medical decision making narrative: Patient evaluated for continued right-sided chest pain. Patient has CT that was reviewed by myself on [facility] 2 days ago. It showed a nondisplaced right fourth rib fracture. This is consistent with his area of pain. He has had no sudden change in his pain or shortness of breath. Do not suspect a secondary pneumothorax at this time. He does not have any fever or new cough and I do not suspect a secondary pneumonia. He already has Percocet, Lidoderm patches, ibuprofen and an incentive spirometer at home. He has not used any of it today. Patient drove himself to the ER so patient is given IM Toradol and a Lidoderm patch in the ER. He will be switched from Motrin to oral Toradol. Counseled the fact that his pain likely will continue for weeks and this is normal for rib fracture. Given return precautions. At this time I do not think repeat imaging is indicated. He appears relatively comfortable and I do not think he needs admission for pain control at this time. Patient is given occupational medicine and [place] if he chooses to follow-up there instead of in [place]. Discharge Plan Triage Chief Complaint: Chest Other ED Provider: Thelma Franco Dx/Rx/DC Orders Clinical Impression: Closed fracture of four ribs of right side, Chest wall pain Instructions: ED Rib Contusion or Minor Fracture Prescriptions: New ketorolac 10 mg tablet 10 mg PO Q6H PRN (Reason: pain) Qty: 20 0RF No Action lisinopril 2.5 mg tablet 2.5 mg PO DAILY multivitamin [Daily Multi-Vitamin] Tablet 1 tab PO DAILY milk thistle 150 mg capsule 150 mg PO DAILY Rx Instructions: give with meal/snack turmeric 500 mg PO DAILY Trulicity 4.5 mg/0.5 mL pen injector 4.5 mg subcut QWEEK Qty: 2 6RF glipizide 10 mg tablet 10 mg PO DAILY Qty: 90 1RF pioglitazone 30 mg tablet 30 mg PO DAILY Qty: 30 6RF omeprazole 20 MG capsule 40 mg PO DAILY levothyroxine 200 mcg tablet 200 mcg PO QHS docusate sodium [Colace] 100 mg capsule 100 mg PO BID Qty: 20 0RF Trulicity 1.5 mg/0.5 mL pen injector 1.5 mg subcut QWEEK Qty: 2 4RF metformin 500 mg tablet 1,000 mg PO BID Qty: 360 1RF Primary Care Provider: Nicky Long [facility] [place] [Group of Physicians] - As Needed Nicky Long PA [Primary Care Provider] - Activity Restrictions/Additional Instructions: Continue to use Lidoderm patches as previously instructed, alternate Toradol with Percocet for pain control. If you are not taking Percocet during the pain you can take just Tylenol but do not combine Tylenol and the Percocet. Stop taking ibuprofen if you are taking Toradol. Continue to use your incentive spirometer. This pain likely will persist for a couple of weeks as you do have a fourth rib fracture. This is a typical course for a rib fracture. Either follow-up with Workmen's Comp. in [place] and you have been given a our Workmen's Comp. follow-up in [place] Disposition Disposition: Home, Self Care Discharge Date/Time: 10/31/22 15:50
== END 2022-10-31 15:50 | disposition home or self-care (01) ==
PROVIDERS: Emergency Provider Emergency Medicine; PCP Physician Assistant; Visit Provider Emergency Medicine
DX: S22.41XA Multiple fractures of ribs, right side, initial encounter for closed fracture (principal); E11.9 Type 2 diabetes mellitus without complications; E78.00 Pure hypercholesterolemia, unspecified; X58.XXXA Exposure to other specified factors, initial encounter
CPT/HCPCS: 96372; 99282

== ENCOUNTER → 2023-06-01 | Outpatient (CLI) | payer OTHER, SELFPAY ==
--- NOTE | 2023-06-01 09:20 | RAD_ITS ---
EXAM: XR CHEST, 2 VIEWS CLINICAL INDICATION: MALIGNANT NEOPLASM OF UNSPECIFIED KIDNEY, EXCEPT RENAL PELVIS TECHNIQUE: Frontal and lateral views of the chest. COMPARISON: No relevant prior studies available. FINDINGS: LUNGS AND PLEURAL SPACES: No significant abnormality. No consolidation or edema. No pneumothorax. No effusion. HEART: No significant abnormality. Cardiac silhouette not enlarged. MEDIASTINUM: Central airways and mediastinal contour are unremarkable. BONES/JOINTS: No significant abnormality. SOFT TISSUES: No significant abnormality. RAD/Chest PA and Lateral IMPRESSION: No radiographic evidence of acute cardiopulmonary disease. Electronically Signed: Arpit Jones DO at 20:16 EDT ,
[2023-06-01 09:34] LABS: Hemoglobin 12.4 g/dL (13.0-16.5); Mean Corp Hgb Conc 31.8 g/dL (32-36); Mean Corpuscular Hgb 27.4 pg (27.0-32.0); Mean Corpuscular Volume 86.1 fL (80-94); Mean Platelet Vol. 9.9 fl (6.2-12.0); Platelet Count 207 K/mm3 (150-450); RBC Distribution Width CV 13.3 % (11.6-14.6); RBC Distribution Width SD 41.7 fl (35.1-43.9); Red Blood Count 4.53 M/mm3 (4.6-6.2); White Blood Count 5.3 K/mm3 (4.4-11.0)
[2023-06-01 10:16] LABS: AST(SGOT) 30 U/L (15-37); Alanine Aminotransfer ALT/SGPT 49 U/L (16-61); Albumin, Serum 3.6 g/dL (3.2-5.0); Alkaline Phosphatase 99 U/L (45-117); Anion Gap 4 (5-15); BUN 22 mg/dL (7-18); BUN/Creat Ratio 18.3 RATIO (10-20); Calcium,Total 9.1 mg/dL (8.5-10.1); Chloride 106 mmol/L (98-107); EST Glomerular Filtration Rate 67 mL/min (>60); Est Glom Filt Rate - Afr Amer 81 mL/min (>60); Globulin 3.7 g/dL (2.2-4.2); Glucose 134 mg/dL (74-106); Potassium 3.9 mmol/L (3.5-5.1); Protein, Total 7.3 g/dL (6.4-8.2); Sodium Level 138 mmol/L (136-145)
== END | disposition home or self-care (01) ==
LOC: LAB 09:13
PROVIDERS: PCP Physician Assistant; Referring Provider Registered Nurse; Visit Provider Registered Nurse
DX: C64.9 Malignant neoplasm of unspecified kidney, except renal pelvis (principal)
CPT/HCPCS: 36415; 71046; 80053; 85027

== ENCOUNTER → 2023-08-30 | Outpatient (CLI) | payer OTHER, SELFPAY ==
--- NOTE | 2023-08-30 07:44 | US_ITS ---
STUDY: ABDOMINAL ULTRASOUND - RIGHT UPPER QUADRANT; ELASTOGRAPHY REASON FOR VISIT: Male, 52 years old. Fatty infiltration of the liver. TECHNIQUE: Ultrasound evaluation of the right upper quadrant was performed with real-time and static morales-scale imaging. Point quantification shear wave elastography was performed ([employer]). TECHNICAL QUALITY: Adequate. COMPARISON: None. FINDINGS: Liver: The liver is enlarged and measures 20.2 cm. There is increased echogenicity consistent with fatty infiltration. The bile ducts are within normal limits. There is hepatic color flow. The direction of portal flow is hepatopetal. There is no demonstrated mass lesion. Median liver stiffness measured 10.3 kPa. Gallbladder: The patient is status post cholecystectomy. Common Bile Duct (C.B.D.): The common bile duct measures 10.7 mm. Pancreas: Nonvisualization due to overlying bowel gas. Right Kidney: Normal size of the right kidney. The right kidney measures 14.4 cm x 6.5 cm x 7.3 cm. Normal renal cortex. The right cortex measures 2.1 cm. There is a 1.2 cm x 1.1 cm x 1 centimeter cyst in the midpole. There is no right hydronephrosis. US/ABD Limited w/ Elastography IMPRESSION: 1. Liver stiffness measures 10.3 kPa compatible with F2-F3 (Mild to moderate liver fibrosis) Metavir score. Electronically Signed: Nirmal Orozco MD at 15:15 EST ,
== END | disposition home or self-care (01) ==
LOC: US 07:42
PROVIDERS: PCP Physician Assistant; Referring Provider Internal Medicine Gastroenterology; Visit Provider Internal Medicine Gastroenterology
DX: K76.0 Fatty (change of) liver, not elsewhere classified (principal); K90.89 Other intestinal malabsorption; K74.00 Hepatic fibrosis, unspecified
CPT/HCPCS: 76705; 76981

== ENCOUNTER → 2023-12-10 | Outpatient (CLI) | payer OTHER, SELFPAY ==
[2023-12-10 16:59] LABS: PSA,Total - Annual Screen 1.56 ng/mL (0.00-4.00)
== END | disposition home or self-care (01) ==
LOC: LAB 15:59
PROVIDERS: PCP Physician Assistant; Referring Provider Nurse Practitioner; Visit Provider Nurse Practitioner
DX: Z12.5 Encounter for screening for malignant neoplasm of prostate (principal)
CPT/HCPCS: 36415; 84153; G0103

== ENCOUNTER → 2023-12-24 | Outpatient (CLI) | payer OTHER, SELFPAY ==
--- NOTE | 2023-12-24 15:42 | CT_ITS ---
STUDY: CT ABDOMEN AND PELVIS WITH AND WITHOUT CONTRAST REASON FOR EXAM: Male, 53 years old. MALIGNANT NEOPLASM OF LEFT KIDNEY RADIATION DOSAGE (If Supplied By Facility): CTDIvol = ( 25.84 ) mGy, DLP = ( 4222.14 ) mGycm TECHNIQUE: Transaxial images were obtained from the dome of the diaphragm to the symphysis pubis without oral contrast. IV 100mL Isovue-300 was administered. Sagittal and coronal images were reconstructed. Individualized dose optimization techniques were used for this CT. COMPARISON: None. FINDINGS: The visualized lung bases are unremarkable. The visualized portions of the heart are within normal limits. Mild nonspecific fatty infiltrated liver without mass or bile duct dilatation status post cholecystectomy. . Mild splenomegaly. Normal pancreas. Normal bilateral adrenal glands. Normal right kidney. Focal post surgical deformity of the left kidney without evidence for recurrent or residual mass. Normal visualized stomach. Normal small intestine. Normal colon. No evidence for acute appendicitis Minor atherosclerotic changes the aorta without evidence for aneurysm. Normal inferior vena cava. Normal retroperitoneum. Normal urinary bladder. Small fat-containing umbilical hernia. Small bilateral fat-containing inguinal hernias. Lumbar spine demonstrates minor spondylosis CT/CT Abd/Pelvis W/WO Contrast IMPRESSION: Postsurgical changes involving the left kidney without recurrent or residual neoplasm.. No retroperitoneal adenopathy hepatic or bone metastases. Electronically Signed: Ponce Palmer MD at 20:00 EDT ,
[2023-12-24 16:05] LABS: CREATININE FINGERSTICK 1.1 mg/dL (0.70-1.30); EGFR FINGERSTICK > 60.0000 mL/min (>60)
== END | disposition home or self-care (01) ==
PROVIDERS: PCP Physician Assistant; Referring Provider Urology; Visit Provider Urology
DX: C64.2 Malignant neoplasm of left kidney, except renal pelvis (principal)
CPT/HCPCS: 74178; Q9967

== ENCOUNTER → 2024-06-12 | Outpatient (CLI) | payer OTHER, SELFPAY ==
--- NOTE | 2024-06-12 16:15 | RAD_ITS ---
INDICATION: Malignant neoplasm of left kidney, except renal pelvis EXAMINATION/TECHNIQUE: X-RAY - XR Chest 2 Views COMPARISON: June 01, 2023. FINDINGS: LINES/DEVICES: None. LUNGS: No consolidation, edema or effusion. No pneumothorax. MEDIASTINUM AND CARDIOVASCULAR STRUCTURES: Cardiac silhouette not enlarged. BONES AND SOFT TISSUES: Unremarkable. RAD/Chest PA and Lateral IMPRESSION: No radiographic evidence of acute cardiopulmonary disease. Electronically Signed: Juno Espinal MD at 8:35 EDT ,
[2024-06-12 17:11] LABS: Hematocrit 38.5 % (40-54); Hemoglobin 12.5 g/dL (13.0-16.5); Mean Corp Hgb Conc 32.5 g/dL (32-36); Mean Corpuscular Hgb 27.1 pg (27.0-32.0); Mean Corpuscular Volume 83.5 fL (80-94); Mean Platelet Vol. 10.5 fl (6.2-12.0); Platelet Count 220 K/mm3 (150-450); RBC Distribution Width CV 13.2 % (11.6-14.6); RBC Distribution Width SD 39.6 fl (35.1-43.9); Red Blood Count 4.61 M/mm3 (4.6-6.2); White Blood Count 6.7 K/mm3 (4.4-11.0)
[2024-06-12 18:06] LABS: Anion Gap 6 (5-15); BUN 21 mg/dL (7-18); BUN/Creat Ratio 19.8 RATIO (10-20); Calcium,Total 9.5 mg/dL (8.5-10.1); Chloride 104 mmol/L (98-107); Creatinine, Serum 1.06 mg/dL (0.70-1.30); EST Glomerular Filtration Rate 77 mL/min (>60); Est Glom Filt Rate - Afr Amer 93 mL/min (>60); Glucose 148 mg/dL (74-106); Potassium 3.9 mmol/L (3.5-5.1); Sodium Level 137 mmol/L (136-145)
== END | disposition home or self-care (01) ==
LOC: LAB 16:11
PROVIDERS: PCP Physician Assistant; Referring Provider Urology; Visit Provider Urology
DX: C64.2 Malignant neoplasm of left kidney, except renal pelvis (principal)
CPT/HCPCS: 36415; 71046; 80048; 85027